=== PATIENT | female | born 1985 | race African-American/Black ===

== ENCOUNTER 2017-08-24 21:54 | Emergency (ER) | payer SELFPAY ==
[2017-08-24] MEDS ORDERED: LIDOCAINE 2% JELLY 5 ML TUBE ONE (22:56)
[2017-08-24] MEDS ORDERED: MECLIZINE HCL 25 MG TABLET PO ONE (23:12)
--- NOTE | 2017-08-24 23:38 | ER Document Report ---
ED General - General Chief Complaint: Foreign Body in Ear Stated Complaint: POSSIBLE INSECT IN EAR Time Seen by Provider: 08/24/17 23:02 Notes: Patient is a 32-year-old female who says that a moth flew into her ear. She wants the month out. She has no other complaints at this time. No bleeding from the ear. TRAVEL OUTSIDE OF THE [place] IN LAST 30 DAYS: No Past Medical History - Social History Smoking Status: Unknown if Ever Smoked Frequency of alcohol use: None Drug Abuse: None Family History: Reviewed & Not Pertinent Patient has suicidal ideation: No Patient has homicidal ideation: No Renal/ Medical History: Denies: Hx Peritoneal Dialysis Surgical Hx: Negative Review of Systems - Review of Systems Notes: My Normal Review Basic REVIEW OF SYSTEMS: CONSTITUTIONAL : Denies fever, chills, or sweats. Denies recent illness. EENT: Foreign body in ear canal... NEUROLOGICAL: Denies headache. ALL OTHER SYSTEMS REVIEWED AND NEGATIVE. Physical Exam - Vital signs Vitals: Temp Pulse Resp BP Pulse Ox 98.7 F 87 18 135/79 H 98 08/24/17 22:33 08/24/17 22:33 08/24/17 22:33 08/24/17 22:33 08/24/17 22:33 - Notes Notes: General Appearance: Well nourished, alert, cooperative, no acute distress, no obvious discomfort. Vitals: reviewed, See vital signs table. Head: no swelling or tenderness to the head Ear: I can visualize the thorax of a bug in the right ear canal. He is embedded in wax up against the TM. Eyes: PERRL, EOMI, Conjuctiva clear Neuro: speech clear, oriented x 3, normal affect, responds appropriately to questions. Course - Re-evaluation Re-evalutation: 08/24/17 23:49 I was able to flush the ear with water several times. This room got it away from the tympanic membrane. I was unable to retrieve it with tweezers. Patient feels much improved. There is no redness or bleeding in or around the ear. Patient will be discharged home. Patient encouraged to return to ER if she has abnormal discharge in the ear, redness or swelling to the ear, or any bleeding from the ear. Patient agrees with plan will be discharged home. Dictation of this chart was performed using voice recognition software; therefore, there may be some unintended grammatical errors. - Vital Signs Vital signs: Temp Pulse Resp BP Pulse Ox 98.7 F 87 18 135/79 H 98 08/24/17 22:33 08/24/17 22:33 08/24/17 22:33 08/24/17 22:33 08/24/17 22:33 Discharge - Discharge Clinical Impression: Foreign body of ear, right Qualifiers: Encounter type: initial encounter Qualified Code(s): T16.1XXA - Foreign body in right ear, initial encounter Condition: Good Disposition: HOME, SELF-CARE Additional Instructions: Please return to the ER immediately if you have any abnormal drainage from the ear, fevers, or bleeding from the ear.
[2017-08-24 23:55] VITALS: BP 138/87
== END 2017-08-25 00:01 | disposition home or self-care (01) ==
LOC: ER 21:54
DX: T16.1XXA Foreign body in right ear, initial encounter (principal); X58.XXXA Exposure to other specified factors, initial encounter
CPT/HCPCS: 99282